=== PATIENT | female | born 1995 | race Caucasian/White ===

== ENCOUNTER 2016-11-22 13:09 | Emergency (ER) | payer SELFPAY ==
[~2016-11-22] VITALS: Ht 165.1 cm; Wt 86.2 kg
[2016-11-22] MEDS ORDERED: SODIUM CHLORIDE 0.9% 1,000 ML IV ONE (13:21)
[2016-11-22 14:04] LABS: Basophils # (auto) 0 uL; Basophils % (auto) 0.3 % (0.0-2.0); Eosinophils # (auto) 0 uL; Eosinophils % (auto) 0.4 % (0.0-7.0); Hemoglobin 14.8 g/dL (12.2-16.2); Lymphocytes # (auto) 1.2 uL; Lymphocytes % (auto) 13.1 % (10.0-50.0); Mean Corpuscular Hgb Conc. 34.5 g/dL (32.0-36.0); Mean Corpuscular Volume 87.2 fL (80.0-100.0); Mean Platelet Volume 9.7 fL (7.4-10.4); Monocytes # (auto) 0.5 uL; Monocytes % (auto) 4.9 % (0.0-12.0); Neutrophils # (auto) 7.7 uL; Neutrophils % (auto) 81.3 % (37.0-80.0); Platelet Count (auto) 340 10^3/uL (140-450); Red Cell Distribution Width 12.7 % (11.6-16.0); White Blood Cell 9.4 10^3/uL (4.4-10.8)
[2016-11-22 14:31] LABS: Albumin 3.9 g/dL (3.4-5.0); Alkaline Phosphatase 85 U/L (45-117); Anion Gap 11 (5-15); Aspartate Aminotransferase 22 U/L (15-37); Bilirubin, Total 0.3 mg/dL (0.2-1.0); Blood Urea Nitrogen 17 mg/dL (7-18); Calcium 9.2 mg/dL (8.5-10.1); Carbon Dioxide 25 mmol/L (21-32); Chloride 108 mmol/L (98-107); GFR African American 142 mL/min; GFR Non-African American 117 mL/min; Glucose 101 mg/dL (74-106); Potassium 3.9 mmol/L (3.5-5.1); Sodium 144 mmol/L (136-145); Total Protein 7.6 g/dL (6.4-8.2)
[2016-11-22 15:10] LABS: B-Type Natriuretic Peptide 21.22 pg/mL (0-100)
[2016-11-22 15:30] LABS: Urine Bilirubin Negative (Negative); Urine Blood Negative /uL (Negative); Urine Color Yellow (Yellow); Urine Glucose Normal (Normal); Urine Ketone Negative (Negative); Urine Mucus FEW (None Seen); Urine Nitrite Negative (Negative); Urine RBC <1 /hpf (0 - 4); Urine Squamous Epithelial Cell FEW /hpf (<5); Urine Urobilinogen Normal (Negative); Urine pH 6.5 (5.0-8.0)
[2016-11-22 16:02] LABS: Temperature: 22.3 C (20.0-25.0)
[2016-11-22] MEDS ORDERED: HYDROcodone-ACET 5/325MG TAB PO ONE (17:00)
[2016-11-22 17:45] VITALS: BP 117/72
== END 2016-11-22 17:57 | disposition home or self-care (01) ==
LOC: ER 13:09
DX: R55 Syncope and collapse (principal); R07.9 Chest pain, unspecified; R06.02 Shortness of breath; I49.9 Cardiac arrhythmia, unspecified
CPT/HCPCS: 36415; 70450; 71010; 80053; 81001; 82962; 83880; 84484; 85025; 93005

== ENCOUNTER 2017-11-02 06:59 | Emergency (ER) | payer MEDICAID ==
[~2017-11-02] VITALS: Ht 165.1 cm; Wt 101.2 kg
[2017-11-02 09:56] VITALS: BP 128/66
== END 2017-11-02 10:04 | disposition home or self-care (01) ==
LOC: ER 06:59
DX: J40 Bronchitis, not specified as acute or chronic (principal); H66.91 Otitis media, unspecified, right ear
CPT/HCPCS: 87400; 87804

== ENCOUNTER 2019-12-14 08:23 | Emergency (ER) | payer SELFPAY ==
[~2019-12-14] VITALS: Ht 165.1 cm; Wt 99.8 kg
[2019-12-14 08:52] VITALS: BP 124/76
== END 2019-12-14 09:21 | disposition home or self-care (01) ==
LOC: ER 08:23
DX: H66.91 Otitis media, unspecified, right ear (principal); H10.31 Unspecified acute conjunctivitis, right eye